=== PATIENT | female | born 1985 | race Two or more races ===

== ENCOUNTER → 2025-01-15 | Outpatient (CLI) | payer BC, SELFPAY ==
[2025-01-15 08:22] LABS: Basophils % (Auto) 1 % (0-2.5); Eosinophils # (Auto) 0.3 Thou/mm3 (0.0-0.5); Eosinophils % (Auto) 4 % (0-10); Hematocrit 38.7 % (36.0-46.0); Hemoglobin 13.1 g/dL (12.0-16.0); Immature Granulocytes % (Auto) 0 % (0-0); Immature Granulocytes Auto 0.01 Thou/mm3 (0.00-0.00); Lymphocytes # (Auto) 1.9 Thou/mm3 (1.0-4.8); Lymphocytes % (Auto) 33 % (10-50); Mean Corpuscular HGB Conc 33.9 g/dl (31.0-37.0); Mean Corpuscular Hemoglobin 28.5 pg (25.0-35.0); Mean Corpuscular Volume 84 fL (80-100); Monocytes # (Auto) 0.2 Thou/mm3 (0.0-0.8); Monocytes % (Auto) 4 % (0-12); Neutrophils # (Auto) 3.4 Thou/mm3 (1.8-7.7); Neutrophils % (Auto) 58 % (37-80); Nucleated Red Blood Cell % 0 /100 WBC (0); Platelet Count 240 Thou/mm3 (140-440); RDW Standard Deviation 41.1 fL (36.4-46.3); Red Blood Count 4.59 Miln/mm3 (4.00-5.20); White Blood Count 5.9 Thou/mm3 (3.6-11.0)
[2025-01-15 08:35] LABS: T4 (Thyroxine) 9.5 mcg/dL (4.5-10.9)
[2025-01-15 08:41] LABS: Alanine Aminotransferase 17 U/L (10-49); Albumin, Serum 4.3 gm/dL (3.5-5.0); Albumin/Globulin Ratio 1.8 (1.2-2.2); Alkaline Phosphatase 83 U/L (46-116); Anion Gap 8 (7-16); Aspartate Amino Transferase 11 U/L (0-34); BUN/Creatinine Ratio 13 Ratio (12-20); Bilirubin,Total 0.5 mg/dL (0.3-1.2); Blood Urea Nitrogen 12 mg/dL (9-23); Calcium 9.1 mg/dL (8.3-10.6); Calcium (Corrected) 9.1 mg/dL (8.5-10.1); Chloride 105 mMol/L (98-107); Creatinine (Component) 0.9 mg/dL (0.6-1.3); Globulin 2.4 gm/dL (2.3-3.5); Glucose 102 mg/dL (74-106); Osmolality,Calculated 280 (275-295); Sodium 141 mMol/L (136-145); Thyroid Stimulating Hormone 0.87 uIU/mL (0.55-4.78); Total Protein 6.7 gm/dL (5.7-8.2); eGFR > 60 See Note
[2025-01-25 06:57] LABS: Estradiol, Ultrasensitive* 32 pg/mL; Progesterone,LC/MS* <0.1 ng/mL
== END | disposition home or self-care (01) ==
LOC: COPL 07:17
PROVIDERS: PCP Family Medicine; Referring Provider Family Medicine; Visit Provider Family Medicine
DX: N92.1 Excessive and frequent menstruation with irregular cycle (principal); F41.0 Panic disorder [episodic paroxysmal anxiety]; R53.82 Chronic fatigue, unspecified; R79.9 Abnormal finding of blood chemistry, unspecified
CPT/HCPCS: 36415; 80053; 82670; 84144; 84436; 84443; 85025

== ENCOUNTER → 2025-01-18 | Outpatient (CLI) | payer BC, SELFPAY ==
--- NOTE | 2025-01-18 16:30 | XR_ITS ---
Examination: Pelvic ultrasound, transabdominal, complete Technique: Transabdominal ultrasound of the pelvis performed using grayscale imaging Date and time of exam: January 18, 2025 1612 hours INDICATIONS: Irregular vaginal bleeding beginning 3 days ago FINDINGS: Uterus 8.7 cm endometrial stripe 0.9 cm Uterine fundal mass 2.5 x 1.5 x 1.7 cm Right ovary 3.8 cm arterial flow small follicles Left ovary 3.2 cm arterial flow IMPRESSION: Uterine fundal mass 2.5 x 1.5 x 1.7 cm, recommend 6 month follow-up transvaginal pelvic sonography to document stability of this mass
== END | disposition home or self-care (01) ==
PROVIDERS: PCP Family Medicine; Referring Provider Family Medicine; Visit Provider Family Medicine
DX: R19.09 Other intra-abdominal and pelvic swelling, mass and lump (principal)
CPT/HCPCS: 76856

== ENCOUNTER 2025-02-01 10:22 | Outpatient (AMB) | payer BC, SELFPAY ==
--- NOTE | 2025-02-01 10:52 | AMB.GYNCLNOT ---
Vital Signs 02/01/25 10:53 Height 1.57 m Height Method Stated Weight 71.781 kg Weight Measurement Method Standing Scale BMI 28.9 BP 144/94 H Blood Pressure Source Automatic Cuff Blood Pressure Location Left Upper Arm Position Sitting Respiration 16 Pulse 90 Pulse Source Monitor Temp 96.3 F L Temp Source Oral Pulse Oximetry (%) 99 Oxygen Delivery Method Room Air Allergies/Home Meds Allergies & Medications Allergies No Known Allergies Allergy (Verified 02/01/25 10:54) Medication Reconciliation No Known Home Medications 02/01/25 [History Confirmed 02/01/25] Intake Visit Data Collection New Patient or Established: Established Patient (seen at [facility] within 3 years) Reason for Visit:: Discuss heavy cycles Seen by Clinical Staff ONLY (RN/MA): No Gunner'S Mate M Required: No Do You Feel Safe at Home: Yes Authorities Contacted: N/A PCP or OBGYN visit in last 3 months: Yes Date of Last PCP or OBGYN visit: 01/16/25 Hx Now: No Are you currently on any form of Control: No Last menstrual period: 01/05/25 Pain Present Currently: No Pain Scale Used: Alas-Nichols/Numerical Pain scale:: 0 Smoking Status Smoking Status: Never smoker 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 1. Little interest or pleasure in doing things: not at all 2. Feeling down, depressed, or hopeless: not at all Total score: 0 PHQ-9 4. Feeling tired or having little energy: Not at all 5. Poor appetite or overeating: Not at all 6. Feeling bad about yourself - or that you are a failure or have let yourself or your family down: Not at all 7. Trouble concentrating on things, such as reading the newspaper or watching television: Not at all 8. Moving or speaking so slowly that other people could have noticed? - Or the opposite - being so fidgety or restless that you have been moving around a lot more than usual: not at all 9. Thoughts that you would be better off or of hurting yourself in some way: Not at all If you checked off any problems, how difficult have these problems made it for you to do your work, take care of things at home, or get along with other people?: not difficult at all Source: Developed by Drs. Morro Umanzor, Celia Lomax, Gareth Nielson and colleagues, with an educational milton from [email or web address]. 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 8 y/o 5 y/o daughters Tobacco History Smoking Status: Never smoker Alcohol History Alcohol Intake: Never Domestic Abuse History Do You Feel Safe at Home: Yes Past Medical History Past Medical History Have you ever been diagnosed with any of the following: Cardiology Problems Heart Murmur: No Hypercholesterolemia: No Hypertension: Yes Respiratory Problems Asthma: No Stomache/Intestinal Problems Gall Bladder Disease: No Obesity: No (Current BMI 28 but patient is on phentermine.) Genital/Urinary Problems Kidney Stones: No Reproductive Problems Breast Cancer: No Endometriosis: No Fibroids: Yes (1 small fibroid 2.1 x 1.5 x 1.7 cm.) Pelvic Inflammatory Disease: No Polycystic Ovarian Syndrome: No Previous Pregnancies: Yes (Vaginal delivery x 2 in 2016 and 2019) Endocrine Problems Diabetes Mellitus Type 2: No Hyperthyroidism: No Hypothyroidism: No Blood Problems Anemia: No Psychologic Problems Anxiety: Yes Other Problems Hospitalization: Yes (For vaginal delivery x 2) Autoimmune Disease: No Cosmetic Surgery: No Blood Transfusions: No Surgical History Appendectomy: No Bariatric Surgery: No Breast Surgery: No Cholecystectomy: No Additional Surgical History: Tonsillectomy adenoidectomy 2023 History of Present Illness HPI Narrative The patient is a 39-year-old -0-0-2 status post vaginal delivery x 2 in the past. Her first daughter Dionne was born in 2016 weighing 6 pounds 14 ounces. Her second baby Dolores was born in June 2020 weighing 7 pounds 13 ounces. Both babies were delivered by Dr. Carter in [place]. She was induced with her first daughter secondary to hypertension. Patient's blood pressure is elevated in the office today she is unsure of whether this is because she is on phentermine. I am unsure why patient is on phentermine as her BMI is normal. She was sent over as a referral from Dr. Jp Carcamo for heavy vaginal bleeding. She stated that she had a very heavy cycle recently with clots the size of her palm. Her and her are not 100% sure they do not want another child. They have been using the pullout method for contraception .Her hemoglobin is normal and her thyroid values are normal from Dr. Carcamo's office. She did have an ultrasound recently revealing a single fibroid measuring 2.5 x 1.5 x 1.7 cm otherwise she had a normal pelvic US. Review of Systems Constitutional Constitutional: Reports system reviewed and no additional complaints, except as documented Comments: Patient reportsone heavy cycle as above. Her cycles are usually regular. No hot flashes no night sweats no urinary complaints no pelvic pain. Patient did check a test during her last heavy cycle and it was negative. Neither her or her have done anything permanent for contraception. She had a Pap with Dr. Carter in September 2024. Patient would like a mammogram ordered at this time. Exam General General Appearance: alert, in no apparent distress, comfortable, cooperative and well groomed Neck Neck exam: Present normal inspection, full ROM and trachea midline Chest Chest inspection: Present normal inspection and symmetric chest wall rise Resp Respiratory exam: Present normal lung sounds bilaterally Card Cardiovascular exam: Present regular rate, normal rhythm and normal heart sounds Abdominal Abdominal exam: Present soft and normal bowel sounds Extremities Extremities exam: Present normal inspection and full ROM Psych Psychiatric exam: Present normal affect and normal mood Skin Skin exam: Present warm, dry, intact and normal color Assessment & Plan Diagnosis / Problem List (1) Menorrhagia, premenopausal: Status: Acute Assessment and Plan: Different options were discussed with the patient including Mirena IUD or NovaSure ablation. Watchful waiting was also discussed. Patient was told she is not a candidate for control pills due to her elevated blood pressure. Patient states she would like a mammogram at this time. She will continue to monitor her cycles. If they continue to be heavy we can revisit Mirena versus NovaSure ablation. She was told if she has a NovaSure ablation I would recommend either vasectomy or laparoscopic salpingectomy as an ablation is not to be used for contraception. The Patient states she understands. She will follow-up in September for an annual exam or sooner if her cycles remain heavy. Additional Plan Follow Up: 7 Months Office Procedures OB Clinic LOC & Office Proc's Nursing/Assessment Patient Status: Established Patient OB Clinic Nursing Assessment: BP Monitoring, Medication Reconciliation, Update PMH in EMR and Vital Signs OB Clinic Coordination of Care: Consent,records obtained, informed consent, Education Simp Pt/Fam, Lab and Imaging orders and Staff clarify orders Established Patient Charge Established Patient Point Assignment: 90 Established Patient Point Charge: EP Level 3 (80-115)
[2025-02-01 10:53] VITALS: BP 144/94; PULSE 90; RESP 16; TEMP 35.7; O2SAT 99; BMI 28.9
== END 2025-02-01 11:59 | disposition home or self-care (01) ==
LOC: HODSOBC 10:22
PROVIDERS: PCP Family Medicine; Referring Provider Family Medicine; Supervising Provider Obstetrics & Gynecology; Visit Provider Obstetrics & Gynecology
DX: N92.4 Excessive bleeding in the premenopausal period (principal)
CPT/HCPCS: 99213; G0463